=== PATIENT | female | born 1945 | race Caucasian/White ===

== ENCOUNTER 2017-01-07 11:08 | Emergency (ER) | payer OTHER, MEDICAID ==
[~2017-01-07 11:08] MED LIST: AZITHROMYCIN250 MG PO; DIO160 PO; LEVOTHYROXIN0.075 MG PO; MUCUS RELIEF400 MG PO; OMEPRAZOLE D/R20 MG PO; Q-PAP500 MG PO
[2017-01-07 13:54] VITALS: BP 140/92
== END 2017-01-07 13:54 | disposition home or self-care (01) ==
LOC: ED 11:08
DX: M25.511 Pain in right shoulder (principal); E11.9 Type 2 diabetes mellitus without complications; I10 Essential (primary) hypertension; E78.00 Pure hypercholesterolemia, unspecified; E03.9 Hypothyroidism, unspecified; Z88.5 Allergy status to narcotic agent; Z88.8 Allergy status to other drugs, medicaments and biological substances
CPT/HCPCS: J1100; J1885

== ENCOUNTER 2018-11-03 16:21 | Emergency (ER) | payer OTHER, MEDICAID ==
[~2018-11-03] VITALS: Ht 157.5 cm; Wt 67.7 kg
[2018-11-03 16:43] VITALS: Ht 157.5 cm; Wt 67.7 kg
[2018-11-03 19:18] VITALS: BP 190/106
[2018-11-03 20:14] LABS: microscopic required? YES; urine erythrocyte 1+ (NEGATIVE)
== END 2018-11-03 20:31 | disposition home or self-care (01) ==
LOC: ED 16:21
PROVIDERS: Emergency Medicine
DX: S62.604A Fracture of unspecified phalanx of right ring finger, initial encounter for closed fracture (principal); I10 Essential (primary) hypertension; E11.9 Type 2 diabetes mellitus without complications; Z88.8 Allergy status to other drugs, medicaments and biological substances; Z88.5 Allergy status to narcotic agent; W23.1XXA Caught, crushed, jammed, or pinched between stationary objects, initial encounter; Y93.89 Activity, other specified; Y92.89 Other specified places as the place of occurrence of the external cause; Y99.8 Other external cause status
CPT/HCPCS: 82962; J1885; J2001; J7030

== ENCOUNTER 2019-02-25 17:28 | Emergency (ER) | payer OTHER, MEDICAID ==
[~2019-02-25] VITALS: Ht 157.5 cm; Wt 69.4 kg
[2019-02-25 17:37] VITALS: Ht 157.5 cm; Wt 69.4 kg
[2019-02-25 19:00] VITALS: BP 164/77
== END 2019-02-25 19:00 | disposition home or self-care (01) ==
LOC: ED 17:28
DX: L03.114 Cellulitis of left upper limb (principal); L03.113 Cellulitis of right upper limb; T78.40XA Allergy, unspecified, initial encounter; I10 Essential (primary) hypertension; E11.9 Type 2 diabetes mellitus without complications; Z88.8 Allergy status to other drugs, medicaments and biological substances; Z88.5 Allergy status to narcotic agent; X58.XXXA Exposure to other specified factors, initial encounter

== ENCOUNTER 2019-02-27 14:40 | Emergency (ER) | payer OTHER, MEDICAID ==
[~2019-02-27] VITALS: Ht 157.5 cm; Wt 69.9 kg
[2019-02-27 14:52] VITALS: Ht 157.5 cm; Wt 69.9 kg
[2019-02-27 16:54] VITALS: BP 131/78
== END 2019-02-27 16:54 | disposition home or self-care (01) ==
LOC: ED 14:40
DX: L03.114 Cellulitis of left upper limb (principal); L03.113 Cellulitis of right upper limb; I10 Essential (primary) hypertension; E11.9 Type 2 diabetes mellitus without complications; Z88.5 Allergy status to narcotic agent; Z88.8 Allergy status to other drugs, medicaments and biological substances

== ENCOUNTER 2019-03-15 08:09 | Emergency (ER) | payer OTHER, MEDICAID ==
[~2019-03-15] VITALS: Ht 157.5 cm; Wt 68.0 kg
[2019-03-15 08:14] VITALS: BP 150/85; Ht 157.5 cm; Wt 68.0 kg
== END 2019-03-15 08:52 | disposition home or self-care (01) ==
LOC: ED 08:09
DX: L29.9 Pruritus, unspecified (principal); R21 Rash and other nonspecific skin eruption; I10 Essential (primary) hypertension; E11.9 Type 2 diabetes mellitus without complications; Z88.5 Allergy status to narcotic agent; Z88.8 Allergy status to other drugs, medicaments and biological substances

== ENCOUNTER 2019-06-01 09:57 | Emergency (ER) | payer OTHER, MEDICAID ==
[2019-06-01 10:04] VITALS: Ht 157.5 cm
[2019-06-01 13:30] VITALS: BP 138/58
== END 2019-06-01 13:30 | disposition home or self-care (01) ==
LOC: ED 09:57
DX: J20.9 Acute bronchitis, unspecified (principal); I10 Essential (primary) hypertension; E11.9 Type 2 diabetes mellitus without complications; Z88.5 Allergy status to narcotic agent; Z88.8 Allergy status to other drugs, medicaments and biological substances
CPT/HCPCS: J7613; J7644

== ENCOUNTER 2020-04-28 11:36 | Inpatient (IN) | payer OTHER, MEDICAID ==
[~2020-04-28] VITALS: Ht 157.5 cm; Wt 70.8 kg
[2020-04-28 13:42] LABS: CALCIUM 8.9 mg/dL (8.5-10.1); CARBON DIOXIDE 36.5 mmol/L (21-32); CHLORIDE SERUM 100 mmol/L (98-107); CREATININE SERUM 0.7 mg/dL (0.6-1.0); GLUCOSE SERUM 124 mg/dL (74-106); POTASSIUM SERUM 4.2 mmol/L (3.5-5.1); SODIUM SERUM 138 mmol/L (136-145)
[2020-04-28 13:46] LABS: ALBUMIN 3.4 g/dL (3.4-5.0); ALKALINE PHOSPHATASE 74 U/L (46-116); ALT/SGPT 26 U/L (14-59); AST/SGOT 17 U/L (15-37); BILIRUBIN TOTAL 0.69 mg/dL (0.20-1.00); TOTAL PROTEIN, SERUM 7.9 g/dL (6.4-8.2)
[2020-04-28 14:18] LABS: PLATELET COUNT 295 x10^3mcL (130-400)
[2020-04-28 14:21] LABS: BASOPHIL % 0 % (0-2)
[2020-04-28 17:51] LABS: UA SPECIFIC GRAVITY 1.025 (1.005-1.035); microscopic required? YES; urine erythrocyte TRACE (NEGATIVE)
[2020-04-28 19:23] LABS: CHOLESTEROL/HDL RATIO 3.3
[2020-04-28 19:59] LABS: AMPHETAMINE QUAL UR NONE DETECTED (See below)
[2020-04-28 21:43] VITALS: BP 152/70
[2020-04-29 05:40] VITALS: BP 132/57
[2020-04-29 08:13] VITALS: BP 145/73
[2020-04-29 12:49] VITALS: BP 149/79
[2020-04-29 16:20] VITALS: BP 123/57
[2020-04-29 20:53] VITALS: BP 131/51
[2020-04-30 04:25] VITALS: BP 150/70
[2020-04-30 07:07] LABS: CALCIUM 8.4 mg/dL (8.5-10.1); CARBON DIOXIDE 30.9 mmol/L (21-32); CHLORIDE SERUM 104 mmol/L (98-107); CREATININE SERUM 0.6 mg/dL (0.6-1.0); GLUCOSE SERUM 129 mg/dL (74-106); MAGNESIUM 2.4 mg/dL (1.8-2.4); POTASSIUM SERUM 3.7 mmol/L (3.5-5.1); SODIUM SERUM 139 mmol/L (136-145)
[2020-04-30 08:17] LABS: BASOPHIL % 0.5 % (0-2); PLATELET COUNT 269 x10^3mcL (130-400); RED CELL DISTRIBUTION WIDTH 14.6 % (11.5-14.5)
[2020-04-30 08:46] VITALS: BP 138/54
[2020-04-30] MEDS ORDERED: CIPRO500 MG PO ×2 (12:04→12:38)
[2020-04-30] MEDS ORDERED: FLAGYL500 MG PO ×2 (12:05→12:38)
[2020-04-30 12:21] VITALS: BP 138/54
== END 2020-04-30 16:04 | disposition home or self-care (01) | DRG 392 ==
LOC: ED 11:36 → MU 18:05
PROVIDERS: Emergency Medicine; ADMIT Family Medicine; ATTEND Family Medicine
DX: K57.32 Diverticulitis of large intestine without perforation or abscess without bleeding (principal); E11.65 Type 2 diabetes mellitus with hyperglycemia; I10 Essential (primary) hypertension; E03.9 Hypothyroidism, unspecified; Z88.5 Allergy status to narcotic agent; Z88.8 Allergy status to other drugs, medicaments and biological substances; Z98.51 Tubal ligation status
CPT/HCPCS: 82962; 83880; G0378; J1956; J3490; J7030; Q0092

== ENCOUNTER 2020-07-18 15:42 | Emergency (ER) | payer OTHER, MEDICAID ==
[~2020-07-18] VITALS: Ht 152.4 cm; Wt 72.6 kg
[~2020-07-18 15:42] MED LIST changes: +CIPRO500 MG PO; +FLAGYL500 MG PO
[2020-07-18 16:04] VITALS: Ht 152.4 cm; Wt 72.6 kg
[2020-07-18 18:17] LABS: microscopic required? YES; urine erythrocyte NEGATIVE (NEGATIVE)
[2020-07-18 19:02] VITALS: BP 138/65
== END 2020-07-18 19:02 | disposition home or self-care (01) ==
LOC: ED 15:42
PROVIDERS: Emergency Medicine
DX: M54.16 Radiculopathy, lumbar region (principal); M47.816 Spondylosis without myelopathy or radiculopathy, lumbar region; M85.88 Other specified disorders of bone density and structure, other site; E11.9 Type 2 diabetes mellitus without complications; I10 Essential (primary) hypertension; E78.00 Pure hypercholesterolemia, unspecified; E66.9 Obesity, unspecified; Z68.31 Body mass index [BMI] 31.0-31.9, adult; Z98.51 Tubal ligation status; Z98.890 Other specified postprocedural states; Z88.8 Allergy status to other drugs, medicaments and biological substances
CPT/HCPCS: 82962; J1100; J1885

== ENCOUNTER 2020-10-31 18:27 | Emergency (ER) | payer OTHER, MEDICAID ==
[~2020-10-31] VITALS: Ht 157.5 cm; Wt 75.7 kg
[2020-10-31 19:34] LABS: BASOPHIL % 0.8 % (0.2-1.3); PLATELET COUNT 286 x10^3mcL (179-408)
[2020-10-31 19:37] LABS: RED CELL DISTRIBUTION WIDTH 14.6 % (12.3-17.7)
[2020-10-31 19:40] LABS: CALCIUM 8.8 mg/dL (8.5-10.1); CARBON DIOXIDE 37.8 mmol/L (21-32); CHLORIDE SERUM 100 mmol/L (98-107); CREATININE SERUM 0.7 mg/dL (0.6-1.0); GLUCOSE SERUM 113 mg/dL (74-106); POTASSIUM SERUM 3.8 mmol/L (3.5-5.1); SODIUM SERUM 137 mmol/L (136-145)
[2020-10-31 19:42] LABS: UA SPECIFIC GRAVITY 1.015 (1.005-1.035); microscopic required? YES; urine erythrocyte NEGATIVE (NEGATIVE)
[2020-10-31 19:45] LABS: ALBUMIN 3.4 g/dL (3.4-5.0); ALKALINE PHOSPHATASE 65 U/L (46-116); ALT/SGPT 26 U/L (14-59); AST/SGOT 19 U/L (15-37); BILIRUBIN TOTAL 0.6 mg/dL (0.20-1.00); TOTAL PROTEIN, SERUM 7.7 g/dL (6.4-8.2)
[2020-10-31] MEDS ORDERED: MACRODANTIN100 M1 PO (22:23)
[2020-10-31] MEDS ORDERED: NAPROXEN375 MG PO (22:26)
[2020-10-31 23:00] VITALS: BP 148/98
== END 2020-10-31 23:00 | disposition home or self-care (01) ==
LOC: ED 18:27
PROVIDERS: Emergency Medicine
DX: N39.0 Urinary tract infection, site not specified (principal); K57.30 Diverticulosis of large intestine without perforation or abscess without bleeding; I10 Essential (primary) hypertension; E11.9 Type 2 diabetes mellitus without complications; Z98.51 Tubal ligation status; Z98.890 Other specified postprocedural states; Z88.8 Allergy status to other drugs, medicaments and biological substances; Z88.5 Allergy status to narcotic agent
CPT/HCPCS: J1885; J7030